=== PATIENT | female | born 1980 | race Hispanic/Latino ===

== ENCOUNTER 2024-03-13 20:24 | Inpatient (IN) | payer MEDICAID ==
[~2024-03-13] VITALS: Ht 162.6 cm; Wt 128.2 kg
[2024-03-13 20:48] LABS: BASOPHILS # (AUTO) 0.07 K/uL (0.00-0.20); BASOPHILS % (AUTO) 0.5 % (0.0-5.0); EOSINOPHILS # (AUTO) 0.14 K/uL (0.00-0.70); HEMATOCRIT 35.1 % (36-48); IMMATURE GRANULOCYTE ABSOLUTE 0.15 K/uL (0-1); LYMPHOCYTES # (AUTO) 3.9 K/uL (1.0-4.8); LYMPHOCYTES % (AUTO) 26.4 % (21.0-51.0); MEAN CORPUSCULAR HGB CONC 32.8 g/dL (32.0-36.0); MEAN CORPUSCULAR VOLUME 85.4 fL (79-99); MONOCYTES # (AUTO) 0.6 K/uL (0.1-1.0); MONOCYTES % (AUTO) 4.3 % (3.0-13.0); NEUTROPHILS # (AUTO) 9.8 K/uL (1.8-7.7); NEUTROPHILS % (AUTO) 66.8 % (40.0-77.0); PLATELET COUNT (AUTO) 317 K/uL (130-400); RED BLOOD CELL COUNT(AUTO) 4.11 MIL/uL (4.00-5.50); RED CELL DISTRIBUTION WIDTH 14.9 % (11.0-15.5); WHITE BLOOD COUNT (AUTO) 14.6 K/uL (4.8-10.8)
[2024-03-13] MEDS: 0.9%NACL 1000ML 1,641 ML IV ONE (20:57)
[2024-03-13] MEDS: CEFTRIAXONE 1G VIAL IVPB ONE (21:03)
[2024-03-13 21:08] LABS: APPEARANCE,URINE CLEAR (CLEAR); BILIRUBIN,URINE NEGATIVE (NEGATIVE); COLOR,URINE LIGHT-YELLOW (YELLOW); GLUCOSE, URINE (UA) >=1000 mg/dL (NEGATIVE); KETONES,URINE 5 mg/dL (NEGATIVE); LEUKOCYTE ESTERASE ,URINE NEGATIVE Leu/uL (NEGATIVE); NITRATE,URINE NEGATIVE (NEGATIVE); OCCULT BLOOD,URINE NEGATIVE (NEGATIVE); PH,URINE 5.5 (5.0-8.0); PROTEIN,URINE 70 mg/dL (NEGATIVE); UROBILINOGEN,URINE 0.2 mg/dL (0.2-1.0)
[2024-03-13 21:09] LABS: CREATININE 1.1 mg/dL (0.5-1.0)
[2024-03-13 21:09] LABS: ADD UA MICROSCOPIC YES
[2024-03-13 21:21] LABS: BACTERIA,URINE RARE /HPF (None Seen); MUCUS,URINE RARE LPF (None Seen); SQUAMOUS EPITHELIAL CELL,UR FEW /HPF (0-2)
[2024-03-13] MEDS: ACETAMINOPHEN 500 MG TABLET PO ONE (22:01)
[2024-03-13 23:48] LABS: SARS-CoV-2, RNA, NAAT NEGATIVE SARS CoV-2 (NEGATIVE)
[2024-03-13 23:55] LABS: INFLUENZA TYPE A Negative For Type A (NEGATIVE); INFLUENZA TYPE B Negative For Type B (NEGATIVE)
[2024-03-14] VITALS (10 sets, daily range): BP systolic 117–161; BP diastolic 63–98; PULSE 89–101; RESP 18–20; TEMP 99.8; O2SAT 94–99
[2024-03-14] MEDS ORDERED: POTASSIUM CHLORIDE 10% ELIXIR 20 MEQ/15 ML UDCUP PO PRN (01:30)
[2024-03-14] MEDS ORDERED: DEXTROSE 50%-WATER 50 ML DISP.SYRIN IV PRN (01:30)
[2024-03-14] MEDS ORDERED: POTASSIUM CHLORIDE 20MEQ/100ML 100 ML IV PRN (01:30)
[2024-03-14] MEDS ORDERED: ONDANSETRON 4MG INJ IV PRN (01:30)
[2024-03-14] MEDS ORDERED: GLUCAGON 1MG KIT 1 MG ML IM PRN (01:30)
[2024-03-14] MEDS ORDERED: LEVO200C2 PO (03:24)
[2024-03-14] MEDS ORDERED: PROC-3 PO (03:24)
[2024-03-14] MEDS ORDERED: METF-444 PO (03:24)
[2024-03-14] MEDS ORDERED: ERGO500093 PO (03:24)
[2024-03-14] MEDS ORDERED: GABA-534 PO (03:24)
[2024-03-14] MEDS ORDERED: FERR-72 PO (03:24)
[2024-03-14] MEDS: 0.9%NACL 1000ML 1,000 ML IV SCH (03:38)
[2024-03-14] MEDS: INSULIN HUMULIN R 100 UNIT/ML 3ML SQ SCH (06:25)
[2024-03-14 07:19] LABS: BASOPHILS # (AUTO) 0.04 K/uL (0.00-0.20); BASOPHILS % (AUTO) 0.4 % (0.0-5.0); EOSINOPHILS # (AUTO) 0.16 K/uL (0.00-0.70); EOSINOPHILS % (AUTO) 1.7 % (0.0-8.0); HEMATOCRIT 31.9 % (36-48); IMMATURE GRANULOCYTE ABSOLUTE 0.11 K/uL (0-1); LYMPHOCYTES # (AUTO) 2.4 K/uL (1.0-4.8); LYMPHOCYTES % (AUTO) 25.4 % (21.0-51.0); MEAN CORPUSCULAR HEMOGLOBIN 27.8 pg (27.0-33.0); MEAN CORPUSCULAR HGB CONC 32.9 g/dL (32.0-36.0); MEAN CORPUSCULAR VOLUME 84.4 fL (79-99); MONOCYTES # (AUTO) 0.5 K/uL (0.1-1.0); MONOCYTES % (AUTO) 5.3 % (3.0-13.0); NEUTROPHILS # (AUTO) 6.3 K/uL (1.8-7.7); PLATELET COUNT (AUTO) 289 K/uL (130-400); RED BLOOD CELL COUNT(AUTO) 3.78 MIL/uL (4.00-5.50); RED CELL DISTRIBUTION WIDTH 15.1 % (11.0-15.5); WHITE BLOOD COUNT (AUTO) 9.5 K/uL (4.8-10.8)
[2024-03-14 07:32] LABS: HEMOGLOBIN A1C 11.4 % (4.0-6.0)
[2024-03-14 07:40] LABS: INR 0.96 (0.85-1.15); PROTHROMBIN TIME 10.4 SEC (9.6-11.6)
[2024-03-14 07:41] LABS: PARTIAL THROMBOPLASTIN TIME 25.4 SEC (26.3-35.5)
[2024-03-14 08:12] LABS: ALBUMIN 2.9 g/dL (3.5-5.0); BILIRUBIN,TOTAL 0.3 mg/dL (0.2-1.0); CREATININE 0.9 mg/dL (0.5-1.0); MAGNESIUM 1.1 mg/dL (1.80-2.40); POTASSIUM 3.8 mmol/L (3.5-5.1); THYROID STIMULATING HORMONE 5.37 uIU/mL (0.36-3.74); TOTAL PROTEIN, SERUM 7.3 g/dL (6.0-8.3)
[2024-03-14] MEDS: CEFTRIAXONE 1G VIAL 1 GM in 0.9%NACL 50ML 50 ML IV SCH (08:40)
[2024-03-14] MEDS: FAMOTIDINE 20MG TAB PO SCH (08:40)
[2024-03-14 08:41] LABS: ERYTHROCYTE SEDIMENTATION RATE 65 MM/HR (0-20)
[2024-03-14] MEDS: ENOXAPARIN SODIUM 30 MG/0.3 ML SQ SCH (08:42)
[2024-03-14] MEDS: CEFTRIAXONE 1G VIAL ONE (08:42)
[2024-03-14] MEDS: CEFEPIME HCL 1 GM VIAL IVPB SCH (14:09)
[2024-03-14] MEDS: INSULIN GLARGINE 100 UNITS/ML 10 ML VIAL SQ SCH (20:34)
[2024-03-14] MEDS: ACETAMINOPHEN 325 MG TAB PO PRN (21:50)
[2024-03-15] VITALS (8 sets, daily range): BP systolic 134–158; BP diastolic 70–99; PULSE 82–106; RESP 18–20; O2SAT 98–99
[2024-03-15 04:32] LABS: BASOPHILS # (AUTO) 0.03 K/uL (0.00-0.20); BASOPHILS % (AUTO) 0.3 % (0.0-5.0); EOSINOPHILS # (AUTO) 0.16 K/uL (0.00-0.70); EOSINOPHILS % (AUTO) 1.7 % (0.0-8.0); LYMPHOCYTES # (AUTO) 2.5 K/uL (1.0-4.8); LYMPHOCYTES % (AUTO) 27.6 % (21.0-51.0); MEAN CORPUSCULAR HEMOGLOBIN 27.2 pg (27.0-33.0); MEAN CORPUSCULAR HGB CONC 31.9 g/dL (32.0-36.0); MEAN CORPUSCULAR VOLUME 85.3 fL (79-99); MONOCYTES # (AUTO) 0.5 K/uL (0.1-1.0); MONOCYTES % (AUTO) 5.2 % (3.0-13.0); NEUTROPHILS # (AUTO) 5.9 K/uL (1.8-7.7); NEUTROPHILS % (AUTO) 64.1 % (40.0-77.0); PLATELET COUNT (AUTO) 260 K/uL (130-400); RED BLOOD CELL COUNT(AUTO) 3.75 MIL/uL (4.00-5.50); RED CELL DISTRIBUTION WIDTH 15.2 % (11.0-15.5); WHITE BLOOD COUNT (AUTO) 9.2 K/uL (4.8-10.8)
[2024-03-15 04:47] LABS: CREATININE 0.9 mg/dL (0.5-1.0); MAGNESIUM 1.4 mg/dL (1.80-2.40); PHOSPHORUS 4.1 mg/dL (2.5-4.9); POTASSIUM 4.1 mmol/L (3.5-5.1)
[2024-03-15] MEDS: ACETAMINOPHEN 325 MG TAB PO PRN (06:24)
[2024-03-15] MEDS: MAGNESIUM 2GM PREMIX 50ML 50 ML IV PRN (06:24)
[2024-03-15] MEDS ORDERED: VANCOMYCIN PROTOCOL PER PHARMACY IV SCH (15:30)
[2024-03-15] MEDS ORDERED: NON-FORMULARY MEDICATION 1 EACH (Gabapentin 300 MG) PO PRN (16:00)
[2024-03-15] MEDS: VANCOMYCIN 2GM/500 ML BAG 500 ML IV ONE (16:28)
[2024-03-15] MEDS: INSULIN GLARGINE 100 UNITS/ML 10 ML VIAL SQ SCH (20:55)
[2024-03-16] VITALS (8 sets, daily range): BP systolic 132–145; BP diastolic 59–96; PULSE 92–98; RESP 16–20; O2SAT 95–97
[2024-03-16 03:24] LABS: BASOPHILS # (AUTO) 0.03 K/uL (0.00-0.20); BASOPHILS % (AUTO) 0.3 % (0.0-5.0); CREATININE 0.9 mg/dL (0.5-1.0); EOSINOPHILS # (AUTO) 0.17 K/uL (0.00-0.70); EOSINOPHILS % (AUTO) 1.9 % (0.0-8.0); HEMATOCRIT 31.5 % (36-48); IMMATURE GRANULOCYTE ABSOLUTE 0.08 K/uL (0-1); LYMPHOCYTES # (AUTO) 2.3 K/uL (1.0-4.8); LYMPHOCYTES % (AUTO) 26.1 % (21.0-51.0); MEAN CORPUSCULAR HEMOGLOBIN 26.8 pg (27.0-33.0); MEAN CORPUSCULAR HGB CONC 31.1 g/dL (32.0-36.0); MEAN CORPUSCULAR VOLUME 86.3 fL (79-99); MONOCYTES # (AUTO) 0.4 K/uL (0.1-1.0); MONOCYTES % (AUTO) 4.8 % (3.0-13.0); NEUTROPHILS # (AUTO) 5.9 K/uL (1.8-7.7); PLATELET COUNT (AUTO) 266 K/uL (130-400); POTASSIUM 3.7 mmol/L (3.5-5.1); RED BLOOD CELL COUNT(AUTO) 3.65 MIL/uL (4.00-5.50); RED CELL DISTRIBUTION WIDTH 15.1 % (11.0-15.5)
[2024-03-16] MEDS: VANCOMYCIN 1.5 GM/250 ML BAG 250 ML IV SCH (05:46)
[2024-03-16] MEDS: KCL 20 MEQ ERTAB PO PRN (06:34)
[2024-03-16] MEDS: LEVOTHYROXINE 100 MCG TABLET PO SCH (06:34)
[2024-03-16] MEDS: INSULIN HUMULIN R 100 UNIT/ML 3ML SQ SCH (11:18)
[2024-03-16] MEDS ORDERED: COMPOUND IV MISC 1 EACH IVSOLN MISC PRN (13:30)
[2024-03-16] MEDS: MEROPENEM 1 GM in 0.9%NACL 100ML 100 ML IV SCH (15:06)
[2024-03-16] MEDS ORDERED: IOHEXOL 350 MG/ML 100ML INFUS..BTL IV ONE (17:11)
[2024-03-17] VITALS (7 sets, daily range): BP systolic 124–148; BP diastolic 75–89; PULSE 71–94; RESP 18–20; O2SAT 96
[2024-03-17 05:28] LABS: BASOPHILS # (AUTO) 0.04 K/uL (0.00-0.20); BASOPHILS % (AUTO) 0.4 % (0.0-5.0); EOSINOPHILS # (AUTO) 0.14 K/uL (0.00-0.70); EOSINOPHILS % (AUTO) 1.3 % (0.0-8.0); HEMATOCRIT 32.7 % (36-48); IMMATURE GRANULOCYTE ABSOLUTE 0.08 K/uL (0-1); LYMPHOCYTES # (AUTO) 2.6 K/uL (1.0-4.8); LYMPHOCYTES % (AUTO) 25.1 % (21.0-51.0); MEAN CORPUSCULAR HEMOGLOBIN 27.6 pg (27.0-33.0); MEAN CORPUSCULAR HGB CONC 32.1 g/dL (32.0-36.0); MEAN CORPUSCULAR VOLUME 86.1 fL (79-99); MONOCYTES # (AUTO) 0.5 K/uL (0.1-1.0); MONOCYTES % (AUTO) 5.1 % (3.0-13.0); NEUTROPHILS % (AUTO) 67.3 % (40.0-77.0); PLATELET COUNT (AUTO) 272 K/uL (130-400); RED CELL DISTRIBUTION WIDTH 15.2 % (11.0-15.5); WHITE BLOOD COUNT (AUTO) 10.4 K/uL (4.8-10.8)
[2024-03-17 05:42] LABS: CREATININE 0.8 mg/dL (0.5-1.0); POTASSIUM 4.1 mmol/L (3.5-5.1); VANCOMYCIN TROUGH 8.1 UG/ML (10.0-20.0)
[2024-03-17] MEDS: VANCOMYCIN 1G/250ML KIT 250 ML IV SCH (12:39)
[2024-03-17] MEDS: INSULIN GLARGINE 100 UNITS/ML 10 ML VIAL SQ SCH (21:25)
[2024-03-18] VITALS (8 sets, daily range): BP systolic 118–162; BP diastolic 68–90; PULSE 62–94; RESP 18–20; O2SAT 96–97
[2024-03-18] MEDS: INSULIN GLARGINE 100 UNITS/ML 10 ML VIAL SQ SCH (20:43)
[2024-03-19 00:15] VITALS: BP 136/80; PULSE 63; RESP 18
[2024-03-19 00:34] VITALS: BP 146/53; PULSE 71; RESP 18
[2024-03-19 03:52] LABS: BASOPHILS # (AUTO) 0.04 K/uL (0.00-0.20); BASOPHILS % (AUTO) 0.4 % (0.0-5.0); EOSINOPHILS # (AUTO) 0.19 K/uL (0.00-0.70); HEMATOCRIT 33.5 % (36-48); IMMATURE GRANULOCYTE ABSOLUTE 0.07 K/uL (0-1); LYMPHOCYTES # (AUTO) 2.5 K/uL (1.0-4.8); LYMPHOCYTES % (AUTO) 26.3 % (21.0-51.0); MEAN CORPUSCULAR HEMOGLOBIN 27.4 pg (27.0-33.0); MEAN CORPUSCULAR HGB CONC 31.9 g/dL (32.0-36.0); MEAN CORPUSCULAR VOLUME 85.7 fL (79-99); MONOCYTES # (AUTO) 0.4 K/uL (0.1-1.0); MONOCYTES % (AUTO) 4.6 % (3.0-13.0); NEUTROPHILS # (AUTO) 6.2 K/uL (1.8-7.7); PLATELET COUNT (AUTO) 282 K/uL (130-400); RED BLOOD CELL COUNT(AUTO) 3.91 MIL/uL (4.00-5.50); RED CELL DISTRIBUTION WIDTH 15.2 % (11.0-15.5); WHITE BLOOD COUNT (AUTO) 9.4 K/uL (4.8-10.8)
[2024-03-19 04:07] VITALS: BP 133/72; PULSE 91; RESP 18
[2024-03-19 04:14] LABS: CREATININE 0.9 mg/dL (0.5-1.0); MAGNESIUM 1.2 mg/dL (1.80-2.40); PHOSPHORUS 4.4 mg/dL (2.5-4.9); POTASSIUM 3.9 mmol/L (3.5-5.1)
[2024-03-19 07:41] VITALS: BP 139/95; PULSE 86; RESP 18
[2024-03-19 08:00] VITALS: O2SAT 91
[2024-03-19 11:41] VITALS: BP 125/72; PULSE 90; RESP 18
[2024-03-19] MEDS ORDERED: CEFU500T67 PO (14:40)
[2024-03-19] MEDS ORDERED: DOXY100T2 PO (14:40)
[2024-03-19] MEDS ORDERED: SITA50TA PO (18:03)
[2024-03-19] MEDS ORDERED: CANA300T PO (18:03)
[2024-03-19] MEDS ORDERED: METF-527 PO (18:03)
== END 2024-03-19 16:00 | disposition home or self-care (01) | DRG 420 ==
LOC: EDH 20:24 → EDHIP 20:25 → 2DH 03-14 03:47
PROVIDERS: ADMIT Internal Medicine; ATTEND Internal Medicine
DX: E11.65 Type 2 diabetes mellitus with hyperglycemia (principal); D84.9 Immunodeficiency, unspecified; R59.0 Localized enlarged lymph nodes; E03.9 Hypothyroidism, unspecified; C54.1 Malignant neoplasm of endometrium; Z20.822 Contact with and (suspected) exposure to COVID-19; I10 Essential (primary) hypertension; Z85.42 Personal history of malignant neoplasm of other parts of uterus; N39.0 Urinary tract infection, site not specified; E66.01 Morbid (severe) obesity due to excess calories; Z83.3 Family history of diabetes mellitus; Z90.710 Acquired absence of both cervix and uterus; Z90.49 Acquired absence of other specified parts of digestive tract; Z68.42 Body mass index [BMI] 45.0-49.9, adult
CPT/HCPCS: 36415; 71045; 71260; 74177; 80048; 80053; 80061; 80202; 81001; 82306; 82550; 82607; 82948; 83036; 83605; 83735; 84100; 84145; 84443; 84484; 85025; 85378; 85610; 85651; 85730; 86140; 87040; 87086; 87186; 87420; 87635; 87804; 93005; 93306; 93356; 96374; 99291; G0378; J0692; J0696; J1650; J1815; J2185; J3370; J3475; J7030; Q9967